=== PATIENT | female | born 2000 | race American Indian/Alaskan Native ===

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

== ENCOUNTER 2019-10-17 17:40 | Emergency (ER) | payer MEDICAID, SELFPAY ==
[2019-10-17] MEDS ORDERED: SODIUM CHLORIDE 0.9% 1000 ML 1,000 ML IV ONE (18:30)
--- NOTE | 2019-10-17 18:32 | Emergency Department Report ---
ED Shortness of Breath HPI - General Chief Complaint: Dyspnea/Respdistress Stated Complaint: SOB Time Seen by Provider: 10/17/19 18:28 Source: EMS Mode of arrival: Ambulatory Limitations: No Limitations - History of Present Illness Initial Comments: Patient is a 19-year-old female that presents emergency room with complaints of shortness of breath. Patient states been going on for 2 days. Patient also complains of nausea and vomiting, low-grade fever, body aches and chills. Patient states that her nausea and vomiting been going on for 4 days and has improved. Patient states that her fever and chills and body aches are constant. Patient states her shortness of breath is better with rest and worse with exertion. Patient has not taken any medications for her symptoms. Patient denies chest pain. Patient denies blood in her vomitus. Patient denies loss of smell. Patient denies diarrhea. MD Complaint: shortness of breath, cough -: Sudden Severity: severe Consistency: constant Improves With: rest Worsens With: exertion Context: recent URI Associated Symptoms: fever, cough Treatments Prior to Arrival: none - Related Data Home Oxygen Therapy: No Home Medications Medication Instructions Recorded Confirmed Last Taken Sertraline [Zoloft] 100 mg PO QHS 10/24/16 10/31/16 10/29/16 21:00 lamoTRIgine [LaMICtal] 50 mg PO QHS 10/24/16 10/31/16 10/29/16 21:00 Previous Rx's Medication Instructions Recorded Last Taken Type DOXYCYCLINE Hyclate [Vibramycin 100 mg PO Q12HR #14 capsule 10/24/16 10/27/16 08:00 Rx CAP] Ibuprofen [Motrin 800 MG tab] 800 mg PO ONCE #30 tablet 10/24/16 10/30/16 08:00 Rx Ondansetron [Zofran ODT TAB] 4 mg PO Q6HR PRN #20 tab.rapdis 10/17/19 Unknown Rx Allergies Allergy/AdvReac Type Severity Reaction Status Date / Time azithromycin Allergy Unknown Verified 10/31/16 01:29 [From Zithromax Z-Fredeirc] ED Review of Systems ROS: Stated complaint: SOB Other details as noted in HPI Constitutional: chills, fever Eyes: denies: eye pain, eye discharge, vision change ENT: denies: ear pain, throat pain Respiratory: cough, shortness of breath. denies: wheezing Cardiovascular: denies: chest pain, palpitations Endocrine: no symptoms reported Gastrointestinal: nausea, vomiting. denies: abdominal pain, diarrhea, constipation, hematemesis, melena, hematochezia Genitourinary: denies: urgency, dysuria, discharge Musculoskeletal: denies: back pain, joint swelling, arthralgia Skin: denies: rash, lesions Neurological: denies: headache, weakness, paresthesias Psychiatric: denies: anxiety, depression Hematological/Lymphatic: denies: easy bleeding, easy bruising ED Past Medical Hx - Past Medical History Previous Medical History?: No - Surgical History Past Surgical History?: No - Family History Family history: no significant - Social History Smoking Status: Never Smoker Substance Use Type: None - Medications Home Medications: Home Medications Medication Instructions Recorded Confirmed Last Taken Type DOXYCYCLINE Hyclate [Vibramycin 100 mg PO Q12HR #14 capsule 10/24/16 10/31/16 10/27/16 08:00 Rx CAP] Ibuprofen [Motrin 800 MG tab] 800 mg PO ONCE #30 tablet 10/24/16 10/31/16 10/30/16 08:00 Rx Sertraline [Zoloft] 100 mg PO QHS 10/24/16 10/31/16 10/29/16 21:00 History lamoTRIgine [LaMICtal] 50 mg PO QHS 10/24/16 10/31/16 10/29/16 21:00 History Ondansetron [Zofran ODT TAB] 4 mg PO Q6HR PRN #20 tab.rapdis 10/17/19 Unknown Rx ED Physical Exam - General Limitations: No Limitations General appearance: alert, in no apparent distress - Head Head exam: Present: atraumatic, normocephalic - Eye Eye exam: Present: normal appearance, PERRL Pupils: Present: normal accommodation - ENT ENT exam: Present: mucous membranes dry - Neck Neck exam: Present: normal inspection - Respiratory Respiratory exam: Present: normal lung sounds bilaterally. Absent: respiratory distress, wheezes, rales, rhonchi, stridor - Cardiovascular Cardiovascular Exam: Present: regular rate, normal rhythm. Absent: systolic murmur, diastolic murmur, rubs, gallop - GI/Abdominal GI/Abdominal exam: Present: soft, normal bowel sounds - Extremities Exam Extremities exam: Present: normal inspection - Back Exam Back exam: Present: normal inspection - Neurological Exam Neurological exam: Present: alert, oriented X3 - Psychiatric Psychiatric exam: Present: normal affect, normal mood - Skin Skin exam: Present: warm, dry, intact, normal color. Absent: rash ED Course Vital Signs 10/17/19 10/17/19 10/17/19 17:52 17:57 18:00 Temperature 98.0 F Pulse Rate 90 92 H Respiratory 32 H 19 25 H Rate Blood Pressure 146/83 143/80 Blood Pressure 146/83 [Right] O2 Sat by Pulse 100 100 100 Oximetry 10/17/19 10/17/19 10/17/19 18:16 18:21 18:30 Temperature Pulse Rate 77 80 Respiratory 12 18 8 L Rate Blood Pressure 143/80 143/80 Blood Pressure [Right] O2 Sat by Pulse 99 100 100 Oximetry ED Medical Decision Making - Lab Data Result diagrams: 10/17/19 18:57 10/17/19 18:57 - Radiology Data Radiology results: report reviewed, image reviewed CHEST 1 VIEW INDICATION / CLINICAL INFORMATION: dyspnea. COMPARISON: None available. FINDINGS: SUPPORT DEVICES: None. HEART / MEDIASTINUM: No significant abnormality. LUNGS / PLEURA: No significant pulmonary or pleural abnormality. No pneumothorax. ADDITIONAL FINDINGS: No significant additional findings. IMPRESSION: 1. No acute findings. - Medical Decision Making Patient is a 19-year-old female that presents emergency room for multiple com plaints. Patient's complaint include fever, cough, shortness of breath, nausea and vomiting. Patient denied loss of smell and diarrhea. Patient's nausea had resolved yesterday. Patient had labs done. Patient's labs are essentially unremarkable. Patient d-dimer negative. Patient's UDS positive for marijuana. Patient's chest x-ray negative. Patient stable for discharge. Patient given discharge instructions. Patient clinical findings are consistent with a possible COVID-19 infection - Differential Diagnosis COVID-19, URI, gastroenteritis, S OB, N/V, fever Critical care attestation.: If time is entered above; I have spent that time in minutes in the direct care of this critically ill patient, excluding procedure time. ED Disposition Clinical Impression: Body aches, Suspected COVID-19 virus infection, SOB (shortness of breath), Gastroenteritis Nausea & vomiting Qualifiers: Vomiting type: unspecified Vomiting Intractability: non-intractable Qualified Code(s): R11.2 - Nausea with vomiting, unspecified Fever Qualifiers: Fever type: unspecified Qualified Code(s): R50.9 - Fever, unspecified Disposition: DC-01 TO HOME OR SELFCARE Is pt being admited?: No Does the pt Need Aspirin: No Condition: Stable Instructions: COVID-19, Gastroenteritis (ED), Acute Nausea and Vomiting (ED) Additional Instructions: Patient to follow-up with primary care in 2 to 3 days. Patient to contact health department and public health as soon as possible for COVID testing. Patient to self quarantine for 14 days. patient to rest. Patient to increase water. Patient to take Tylenol as needed for pain or pain. Patient to take meds as directed. Patient to return to ER if shortness of breath worsens or symptoms worsen. Patient to return to the ER if condition worsens, changes or new symptoms arise. Patient to eat a brat diet. Prescriptions: Ondansetron [Zofran ODT TAB] 4 mg PO Q6HR PRN #20 tab.rapdis PRN Reason: Nausea And Vomiting Referrals: PRIMARY CARE, [Primary Care Provider] - 2-3 Days [facility] [Outside] - 2-3 Days Time of Disposition: 20:14
[2019-10-17 18:56] LABS: Bilirubin,Urine NEG (Negative); Blood,Urine NEG (Negative); Color,Urine Yellow (Yellow); Mucus,Urine FEW /HPF; Protein,Urine <15 mg/dL mg/dL (Negative); Urobilinogen,Urine < 2.0 mg/dL (<2.0)
[2019-10-17 19:00] LABS: HCG Qualitative,Urine Negative (Negative)
--- NOTE | 2019-10-17 19:00 | XRay Report ---
CHEST 1 VIEW INDICATION / CLINICAL INFORMATION: dyspnea. COMPARISON: None available. FINDINGS: SUPPORT DEVICES: None. HEART / MEDIASTINUM: No significant abnormality. LUNGS / PLEURA: No significant pulmonary or pleural abnormality. No pneumothorax. ADDITIONAL FINDINGS: No significant additional findings. IMPRESSION: 1. No acute findings. Signer Name: Nidia Hannah MD Signed: 10/17/2019 6:55 PM Workstation Name: [id number]
[2019-10-17 19:03] LABS: Amphetamine Screen,Urine PRESUMPTIVE NEGATIVE; Benzodiazepines Screen,Urine PRESUMPTIVE NEGATIVE; Cocaine Screen,Urine PRESUMPTIVE NEGATIVE; Methadone Screen,Urine PRESUMPTIVE NEGATIVE; Opiate Screen,Urine PRESUMPTIVE NEGATIVE
[2019-10-17 19:11] LABS: Basophils # (Auto) 0.1 K/mm3 (0.0-0.1); Eosinophils % (Auto) 0.4 % (0.0-4.3); Hematocrit 36.9 % (30.3-42.9); Hemoglobin 12.4 gm/dl (10.1-14.3); Lymphocytes # (Auto) 1.4 K/mm3 (1.2-5.4); Lymphocytes % (Auto) 18.3 % (13.4-35.0); Mean Corpuscular HGB Conc 34 % (30-34); Mean Corpuscular Volume 88 fl (79-97); Monocytes # (Auto) 0.6 K/mm3 (0.0-0.8); Monocytes % (Auto) 7.3 % (0.0-7.3); Platelet Count 299 K/mm3 (140-440); Red Cell Distribution Width 14.1 % (13.2-15.2)
[2019-10-17 19:15] LABS: Cannabinoid Screen,Urine PRESUMPTIVE POSITIVE
[2019-10-17 19:23] LABS: Alanine Aminotransferase 9 units/L (7-56); Albumin 3.7 g/dL (3.9-5); BUN/Creatinine Ratio 8; Blood Urea Nitrogen 5 mg/dL (7-17); Calcium 8.5 mg/dL (8.4-10.2); Hemolysis Index 6
[2019-10-17 19:26] LABS: Creatine Kinase MB < 1.0 ng/mL (0.0-4.0)
[2019-10-17 20:50] VITALS: BP 143/77
== END 2019-10-17 20:53 | disposition home or self-care (01) ==
LOC: ED 17:40
DX: K21.9 Gastro-esophageal reflux disease without esophagitis (principal); Z20.828 Contact with and (suspected) exposure to other viral communicable diseases; Z79.899 Other long term (current) drug therapy
CPT/HCPCS: 36415; 71045; 80053; 80307; 81001; 81025; 82140; 82550; 82553; 85025; 85379; 99284; J7030